=== PATIENT | male | born 1940 | race African-American/Black ===

== ENCOUNTER 2023-06-24 19:45 | Inpatient (IN) | payer MEDICARE, OTHER ==
[~2023-06-24] VITALS: Ht 172.7 cm; Wt 72.6 kg
[2023-06-24 21:47] LABS: BASOPHILS % (AUTO) 0.9 % (0.0-2.0); EOSINOPHILS # (AUTO) 0.1 K/uL (0.0-0.7); EOSINOPHILS % (AUTO) 2.3 % (0.0-6.0); HEMATOCRIT 40 % (39-51); HEMOGLOBIN 13.1 g/dL (13.5-17.5); LYMPHOCYTES % (AUTO) 42.5 % (20.0-44.0); MEAN CORPUSCULAR HEMOGLOBIN 30 PG (26.0-33.0); MEAN CORPUSCULAR HGB CONC 33 g/dl (31.0-36.0); MEAN CORPUSCULAR VOLUME 90 fL (80-96); MONOCYTES # (AUTO) 0.5 K/uL (0.1-1.30); MONOCYTES % (AUTO) 10.3 % (2.0-12.0); NEUTROPHILS # (AUTO) 2.1 K/uL (1.8-8.9); PLATELET COUNT (AUTO) 108 K/uL (150-450); RED CELL DISTRIBUTION WIDTH 15.8 % (11.5-15.0); WHITE BLOOD COUNT (AUTO) 4.8 K/uL (4.3-11.0)
[2023-06-24 22:00] LABS: CALCIUM, SERUM 9.2 mg/dL (8.5-10.1); CARBON DIOXIDE 22 mmol/L (21-32); CHLORIDE 104 mmol/L (98-107); CREATININE 1.4 mg/dL (0.6-1.3); GLUCOSE 101 mg/dL (74-106); POTASSIUM 3.6 mmol/L (3.5-5.1); SODIUM SERUM 138 mmol/L (136-145); UREA NITROGEN, BLOOD 20 mg/dL (7-18)
[2023-06-24 22:07] LABS: ALANINE AMINOTRANSFERASE 26 U/L (12-78); ALBUMIN 3.5 g/dL (3.4-5.0); ALCOHOL, BLOOD < 3 mg/dL (0-10); ALKALINE PHOSPHATASE 99 U/L (46-116); ASPARTATE AMINOTRANSFERASE 28 U/L (15-37); BILIRUBIN,DIRECT 0.3 mg/dL (0.0-0.2); BILIRUBIN,TOTAL 0.7 mg/dL (0.2-1.0); TOTAL PROTEIN, SERUM 7.8 g/dL (6.4-8.2)
[2023-06-24 22:12] LABS: SALICYLATE < 2.3 mg/dL (2.8-20.0)
[2023-06-24 22:14] LABS: ACETAMINOPHEN <10 ug/ml (10-30)
[2023-06-24] MEDS ORDERED: LORAZEPAM INJ 2 MG/ML VIAL ONE (22:59)
[2023-06-24] MEDS ORDERED: LORAZEPAM INJ 2 MG/ML VIAL IM ONE (23:00)
[2023-06-25] MEDS ORDERED: INSU100I26 SQ (04:22)
[2023-06-25] MEDS ORDERED: ASPI-1169 PO (04:22)
[2023-06-25] MEDS ORDERED: TAFA61CA PO (04:22)
[2023-06-25] MEDS ORDERED: MELA3TAB41 PO (04:22)
[2023-06-25] MEDS ORDERED: ATOR20TA PO (04:22)
[2023-06-25] MEDS ORDERED: ESCI5TAB PO (04:22)
[2023-06-25] MEDS ORDERED: FURO-144 PO (04:22)
[2023-06-25] MEDS ORDERED: CARV12.52 PO (04:22)
[2023-06-25] MEDS ORDERED: DONE10TA11 PO (04:22)
[2023-06-25] MEDS ORDERED: TRAZ-182 PO (04:22)
[2023-06-25 05:00] VITALS: BP 138/96; TEMP 98; O2SAT 99
[2023-06-25] MEDS ORDERED: LORAZEPAM 0.5 MG TABLET PO PRN (05:00)
[2023-06-25 08:00] VITALS: BP 117/76; TEMP 97.6; O2SAT 96
[2023-06-25] MEDS ORDERED: DEXTROSE 50%-WATER 50 ML DISP.SYRIN IV PRN (10:30)
[2023-06-25] MEDS: BLOOD SUGAR DIAGNOSTIC 1 EACH STRIP VI SCH ×3 (11:44→22:01)
[2023-06-25] MEDS: DIVALPROEX SODIUM 125 MG CAP.SPRINK PO SCH ×2 (13:58→17:00)
[2023-06-25 16:00] VITALS: BP 135/78; TEMP 97.7; O2SAT 97
[2023-06-25] MEDS ORDERED: TAFAMIDIS PO SCH (17:00)
[2023-06-25] MEDS: CARVEDILOL 12.5 MG TABLET PO SCH (17:00)
[2023-06-25] MEDS: ASPIRIN 81 MG TAB.CHEW PO SCH (17:00)
[2023-06-25] MEDS: FUROSEMIDE 40 MG TABLET PO SCH (17:00)
[2023-06-25] MEDS ORDERED: Medication Not On Formulary EA (Melatonin 1 TAB) PO SCH (18:00)
[2023-06-25 20:00] VITALS: BP 121/71; TEMP 98.4; O2SAT 97
[2023-06-25] MEDS: ATORVASTATIN 10 MG TABLET PO SCH (21:52)
[2023-06-25] MEDS: INSULIN GLARGINE, 100 UNIT/ML CARTRIDGE SQ SCH (21:54)
[2023-06-26] MEDS: BLOOD SUGAR DIAGNOSTIC 1 EACH STRIP VI SCH ×4 (07:45→21:51)
[2023-06-26 08:00] VITALS: BP 118/66; TEMP 97.6; O2SAT 98
[2023-06-26] MEDS: ASPIRIN 81 MG TAB.CHEW PO SCH (08:19)
[2023-06-26] MEDS: DIVALPROEX SODIUM 125 MG CAP.SPRINK PO SCH ×2 (08:19→16:28)
[2023-06-26] MEDS: CARVEDILOL 12.5 MG TABLET PO SCH ×2 (08:20→16:28)
[2023-06-26] MEDS: FUROSEMIDE 40 MG TABLET PO SCH ×2 (08:20→16:27)
[2023-06-26 16:00] VITALS: BP 109/67; TEMP 97.8; O2SAT 100
[2023-06-26 20:00] VITALS: BP 128/71; TEMP 98.1; O2SAT 98
[2023-06-26] MEDS: MEMANTINE HCL 5 MG TABLET PO SCH ×2 (21:19→22:13)
[2023-06-26] MEDS: ATORVASTATIN 10 MG TABLET PO SCH (21:20)
[2023-06-26] MEDS: INSULIN GLARGINE, 100 UNIT/ML CARTRIDGE SQ SCH (21:53)
[2023-06-27] MEDS: BLOOD SUGAR DIAGNOSTIC 1 EACH STRIP VI SCH ×4 (07:39→21:24)
[2023-06-27 08:00] VITALS: BP 98/58; TEMP 97.8; O2SAT 100
[2023-06-27] MEDS: ASPIRIN 81 MG TAB.CHEW PO SCH (08:10)
[2023-06-27] MEDS: DIVALPROEX SODIUM 125 MG CAP.SPRINK PO SCH ×2 (08:10→16:28)
[2023-06-27] MEDS: CARVEDILOL 12.5 MG TABLET PO SCH ×2 (08:10→16:28)
[2023-06-27] MEDS: FUROSEMIDE 40 MG TABLET PO SCH ×2 (08:10→16:28)
[2023-06-27] MEDS ORDERED: ACET-868 PO (12:38)
[2023-06-27] MEDS ORDERED: MEMA10TA PO (12:38)
[2023-06-27] MEDS ORDERED: BISA10SU11 RC (12:38)
[2023-06-27] MEDS ORDERED: BLOO-1280 IN (12:38)
[2023-06-27] MEDS ORDERED: NA P133E RC (12:38)
[2023-06-27 16:00] VITALS: BP 103/65; TEMP 97.8; O2SAT 97
[2023-06-27] MEDS: ATORVASTATIN 10 MG TABLET PO SCH (21:23)
[2023-06-27] MEDS: MEMANTINE HCL 5 MG TABLET PO SCH (21:23)
[2023-06-27] MEDS: INSULIN GLARGINE, 100 UNIT/ML CARTRIDGE SQ SCH (21:26)
[2023-06-27 21:27] VITALS: BP 112/70; TEMP 97.9; O2SAT 100
[2023-06-28 08:00] VITALS: BP 98/56; TEMP 97.8; O2SAT 100
[2023-06-28] MEDS: BLOOD SUGAR DIAGNOSTIC 1 EACH STRIP VI SCH ×4 (08:00→22:02)
[2023-06-28] MEDS: FUROSEMIDE 40 MG TABLET PO SCH (08:01)
[2023-06-28] MEDS: CARVEDILOL 12.5 MG TABLET PO SCH ×2 (08:01→17:09)
[2023-06-28] MEDS: ASPIRIN 81 MG TAB.CHEW PO SCH (08:02)
[2023-06-28] MEDS: DIVALPROEX SODIUM 125 MG CAP.SPRINK PO SCH ×2 (08:03→17:08)
[2023-06-28 16:00] VITALS: BP 116/62; TEMP 97.8; O2SAT 100
[2023-06-28 20:17] VITALS: BP 104/60; TEMP 98.6; O2SAT 96
[2023-06-28] MEDS: MEMANTINE HCL 5 MG TABLET PO SCH (21:48)
[2023-06-28] MEDS: ATORVASTATIN 10 MG TABLET PO SCH (21:48)
[2023-06-28] MEDS: *INSULIN REGULAR(HUMULIN R)HUM 100 UNIT/ML VIAL SQ PRN (21:59)
[2023-06-28] MEDS: INSULIN GLARGINE, 100 UNIT/ML CARTRIDGE SQ SCH (22:01)
[2023-06-29] MEDS: BLOOD SUGAR DIAGNOSTIC 1 EACH STRIP VI SCH ×4 (07:38→21:28)
[2023-06-29 08:00] VITALS: BP 117/74; TEMP 97.8; O2SAT 97
[2023-06-29] MEDS: ASPIRIN 81 MG TAB.CHEW PO SCH (08:07)
[2023-06-29] MEDS: DIVALPROEX SODIUM 125 MG CAP.SPRINK PO SCH ×2 (08:08→17:36)
[2023-06-29] MEDS: CARVEDILOL 12.5 MG TABLET PO SCH ×2 (08:08→17:37)
[2023-06-29 16:00] VITALS: BP 106/69; TEMP 98.2; O2SAT 99
[2023-06-29 20:26] VITALS: BP 125/78; TEMP 98.2; O2SAT 99
[2023-06-29] MEDS: ATORVASTATIN 10 MG TABLET PO SCH (21:25)
[2023-06-29] MEDS: MEMANTINE HCL 5 MG TABLET PO SCH (21:25)
[2023-06-29] MEDS: TEMAZEPAM 7.5 MG CAPSULE PO PRN (21:33)
[2023-06-29] MEDS: INSULIN GLARGINE, 100 UNIT/ML CARTRIDGE SQ SCH (21:41)
[2023-06-29] MEDS: *INSULIN REGULAR(HUMULIN R)HUM 100 UNIT/ML VIAL SQ PRN (21:44)
[2023-06-30] MEDS: BLOOD SUGAR DIAGNOSTIC 1 EACH STRIP VI SCH ×4 (07:47→21:35)
[2023-06-30 08:00] VITALS: BP 114/65; TEMP 98.1; O2SAT 95
[2023-06-30] MEDS: ASPIRIN 81 MG TAB.CHEW PO SCH (08:07)
[2023-06-30] MEDS: DIVALPROEX SODIUM 125 MG CAP.SPRINK PO SCH ×2 (08:07→16:23)
[2023-06-30] MEDS: CARVEDILOL 12.5 MG TABLET PO SCH ×2 (08:08→16:23)
[2023-06-30] MEDS ORDERED: ACETAMINOPHEN 325 MG TABLET PO PRN (08:30)
[2023-06-30] MEDS: INSULIN REGULAR, HUMAN 100 UNIT/ML 3 ML VIAL SQ PRN (12:27)
[2023-06-30 16:00] VITALS: BP 122/74; TEMP 98.1; O2SAT 98
[2023-06-30 20:00] VITALS: BP 107/69; TEMP 98.8; O2SAT 100
[2023-06-30] MEDS: TEMAZEPAM 7.5 MG CAPSULE PO PRN (21:04)
[2023-06-30] MEDS: ATORVASTATIN 10 MG TABLET PO SCH (21:04)
[2023-06-30] MEDS: MEMANTINE HCL 5 MG TABLET PO SCH (21:04)
[2023-06-30] MEDS: *INSULIN REGULAR(HUMULIN R)HUM 100 UNIT/ML VIAL SQ PRN (21:09)
[2023-06-30] MEDS: INSULIN GLARGINE, 100 UNIT/ML CARTRIDGE SQ SCH (21:10)
[2023-07-01] MEDS: BLOOD SUGAR DIAGNOSTIC 1 EACH STRIP VI SCH ×4 (07:24→22:03)
[2023-07-01 08:00] VITALS: BP 107/72; TEMP 97.9; O2SAT 100
[2023-07-01] MEDS: ASPIRIN 81 MG TAB.CHEW PO SCH (08:43)
[2023-07-01] MEDS: CARVEDILOL 12.5 MG TABLET PO SCH ×2 (08:43→16:56)
[2023-07-01] MEDS: DIVALPROEX SODIUM 125 MG CAP.SPRINK PO SCH ×3 (08:44→16:55)
[2023-07-01 16:00] VITALS: BP 106/65; TEMP 97.9; O2SAT 99
[2023-07-01 20:49] VITALS: BP 121/69; TEMP 97.9; O2SAT 99
[2023-07-01] MEDS: ATORVASTATIN 10 MG TABLET PO SCH (21:52)
[2023-07-01] MEDS: MEMANTINE HCL 5 MG TABLET PO SCH (21:53)
[2023-07-01] MEDS: INSULIN GLARGINE, 100 UNIT/ML CARTRIDGE SQ SCH (22:07)
[2023-07-01] MEDS: *INSULIN REGULAR(HUMULIN R)HUM 100 UNIT/ML VIAL SQ PRN (22:08)
[2023-07-02] MEDS: BLOOD SUGAR DIAGNOSTIC 1 EACH STRIP VI SCH ×4 (07:46→21:27)
[2023-07-02 08:00] VITALS: BP 111/75; TEMP 97.6; O2SAT 100
[2023-07-02] MEDS: DIVALPROEX SODIUM 125 MG CAP.SPRINK PO SCH ×3 (08:22→16:58)
[2023-07-02] MEDS: CARVEDILOL 12.5 MG TABLET PO SCH ×2 (08:22→16:59)
[2023-07-02] MEDS: ASPIRIN 81 MG TAB.CHEW PO SCH (08:22)
[2023-07-02 16:00] VITALS: BP 120/68; TEMP 97.7; O2SAT 97
[2023-07-02 20:00] VITALS: BP 102/67; TEMP 98.1; O2SAT 99
[2023-07-02] MEDS: ATORVASTATIN 10 MG TABLET PO SCH (21:26)
[2023-07-02] MEDS: MEMANTINE HCL 5 MG TABLET PO SCH (21:26)
[2023-07-02] MEDS: INSULIN GLARGINE, 100 UNIT/ML CARTRIDGE SQ SCH (22:00)
[2023-07-03 07:13] LABS: BASOPHILS % (AUTO) 0.8 % (0.0-2.0); EOSINOPHILS # (AUTO) 0.1 K/uL (0.0-0.7); EOSINOPHILS % (AUTO) 2.8 % (0.0-6.0); HEMATOCRIT 36 % (39-51); HEMOGLOBIN 11.9 g/dL (13.5-17.5); LYMPHOCYTES # (AUTO) 1.8 K/uL (0.8-4.8); LYMPHOCYTES % (AUTO) 46.3 % (20.0-44.0); MEAN CORPUSCULAR HEMOGLOBIN 30 PG (26.0-33.0); MEAN CORPUSCULAR HGB CONC 33 g/dl (31.0-36.0); MEAN CORPUSCULAR VOLUME 91 fL (80-96); MONOCYTES # (AUTO) 0.3 K/uL (0.1-1.30); MONOCYTES % (AUTO) 8.7 % (2.0-12.0); NEUTROPHILS # (AUTO) 1.6 K/uL (1.8-8.9); NEUTROPHILS % (AUTO) 41.4 % (43.0-81.0); PLATELET COUNT (AUTO) 105 K/uL (150-450); RED BLOOD CELL COUNT(AUTO) 3.95 MIL/uL (4.5-6.0); RED CELL DISTRIBUTION WIDTH 15.7 % (11.5-15.0); WHITE BLOOD COUNT (AUTO) 3.9 K/uL (4.3-11.0)
[2023-07-03 08:00] VITALS: BP 97/67; TEMP 98.6; O2SAT 99
[2023-07-03] MEDS: BLOOD SUGAR DIAGNOSTIC 1 EACH STRIP VI SCH ×4 (08:00→22:24)
[2023-07-03 08:19] LABS: ALBUMIN 2.8 g/dL (3.4-5.0); BILIRUBIN,TOTAL 0.7 mg/dL (0.2-1.0); CALCIUM, SERUM 8.8 mg/dL (8.5-10.1); CREATININE 1.3 mg/dL (0.6-1.3); POTASSIUM 4.1 mmol/L (3.5-5.1); TOTAL PROTEIN, SERUM 6.5 g/dL (6.4-8.2)
[2023-07-03] MEDS: ASPIRIN 81 MG TAB.CHEW PO SCH (08:50)
[2023-07-03] MEDS: DIVALPROEX SODIUM 125 MG CAP.SPRINK PO SCH ×3 (08:50→17:27)
[2023-07-03] MEDS: CARVEDILOL 12.5 MG TABLET PO SCH ×2 (08:51→17:00)
[2023-07-03 15:43] VITALS: BP 116/69; TEMP 97.4; O2SAT 99
[2023-07-03 16:00] VITALS: BP 116/69; TEMP 97.4; O2SAT 100
[2023-07-03] MEDS: INSULIN REGULAR, HUMAN 100 UNIT/ML 3 ML VIAL SQ PRN (17:33)
[2023-07-03 20:00] VITALS: BP 135/67; TEMP 98.4; O2SAT 99
[2023-07-03] MEDS: MEMANTINE HCL 5 MG TABLET PO SCH (21:21)
[2023-07-03] MEDS: ATORVASTATIN 10 MG TABLET PO SCH (21:21)
[2023-07-03] MEDS: INSULIN GLARGINE, 100 UNIT/ML CARTRIDGE SQ SCH (22:00)
[2023-07-04 08:00] VITALS: BP 121/84; TEMP 98.1; O2SAT 94
[2023-07-04] MEDS: BLOOD SUGAR DIAGNOSTIC 1 EACH STRIP VI SCH ×2 (08:42→11:56)
[2023-07-04] MEDS: DIVALPROEX SODIUM 125 MG CAP.SPRINK PO SCH ×2 (08:43→16:44)
[2023-07-04] MEDS: CARVEDILOL 12.5 MG TABLET PO SCH ×2 (08:43→16:45)
[2023-07-04] MEDS: ASPIRIN 81 MG TAB.CHEW PO SCH (08:43)
[2023-07-04 16:00] VITALS: BP 119/72; TEMP 98; O2SAT 99
[2023-07-04 20:00] VITALS: BP 109/69; TEMP 98.5; O2SAT 98
[2023-07-04] MEDS: MEMANTINE HCL 5 MG TABLET PO SCH (21:21)
[2023-07-04] MEDS: ATORVASTATIN 10 MG TABLET PO SCH (21:21)
[2023-07-04] MEDS: INSULIN GLARGINE, 100 UNIT/ML CARTRIDGE SQ SCH (21:27)
[2023-07-05 08:00] VITALS: BP 118/70; TEMP 97.7; O2SAT 100
[2023-07-05] MEDS: ASPIRIN 81 MG TAB.CHEW PO SCH (09:01)
[2023-07-05] MEDS: DIVALPROEX SODIUM 125 MG CAP.SPRINK PO SCH ×2 (09:01→16:36)
[2023-07-05] MEDS: CARVEDILOL 12.5 MG TABLET PO SCH ×2 (09:02→16:37)
[2023-07-05 16:00] VITALS: BP 101/63; TEMP 97.9; O2SAT 98
[2023-07-05 20:00] VITALS: BP_SYST 111; BP_SYST 138; BP_DIAS 74; TEMP 97.3; TEMP 98.2; O2SAT 97; O2SAT 98
[2023-07-05] MEDS: ATORVASTATIN 10 MG TABLET PO SCH (21:43)
[2023-07-05] MEDS: MEMANTINE HCL 5 MG TABLET PO SCH (21:43)
[2023-07-05] MEDS: INSULIN GLARGINE, 100 UNIT/ML CARTRIDGE SQ SCH (21:50)
[2023-07-06 08:00] VITALS: BP 100/71; TEMP 97.9; O2SAT 98
[2023-07-06] MEDS: DIVALPROEX SODIUM 125 MG CAP.SPRINK PO SCH ×2 (08:58→16:32)
[2023-07-06] MEDS: ASPIRIN 81 MG TAB.CHEW PO SCH (08:58)
[2023-07-06] MEDS: CARVEDILOL 12.5 MG TABLET PO SCH ×2 (08:58→16:33)
[2023-07-06 16:00] VITALS: BP 94/63; TEMP 97.7; O2SAT 99
[2023-07-06 20:30] VITALS: BP 94/57; TEMP 98.2; O2SAT 100
[2023-07-06 21:00] VITALS: BP 105/73; TEMP 98; O2SAT 96
[2023-07-06] MEDS: INSULIN GLARGINE, 100 UNIT/ML CARTRIDGE SQ SCH (21:58)
[2023-07-06] MEDS: MEMANTINE HCL 5 MG TABLET PO SCH (21:58)
[2023-07-06] MEDS: ATORVASTATIN 10 MG TABLET PO SCH (21:58)
[2023-07-07 08:00] VITALS: BP 132/82; TEMP 98.1; O2SAT 100
[2023-07-07] MEDS: ASPIRIN 81 MG TAB.CHEW PO SCH (08:17)
[2023-07-07] MEDS: CARVEDILOL 12.5 MG TABLET PO SCH ×2 (08:18→16:50)
[2023-07-07] MEDS: DIVALPROEX SODIUM 125 MG CAP.SPRINK PO SCH ×2 (08:18→16:50)
[2023-07-07 16:00] VITALS: BP 106/62; TEMP 97.8; O2SAT 100
[2023-07-07 20:56] VITALS: BP 106/68; TEMP 98.2; O2SAT 98
[2023-07-07] MEDS: ATORVASTATIN 10 MG TABLET PO SCH (21:08)
[2023-07-07] MEDS: MEMANTINE HCL 5 MG TABLET PO SCH (21:08)
[2023-07-07] MEDS: INSULIN GLARGINE, 100 UNIT/ML CARTRIDGE SQ SCH (21:24)
[2023-07-08] MEDS: TEMAZEPAM 7.5 MG CAPSULE PO PRN (01:28)
[2023-07-08 08:00] VITALS: BP 112/72; TEMP 98; O2SAT 100
[2023-07-08] MEDS: ASPIRIN 81 MG TAB.CHEW PO SCH (09:03)
[2023-07-08] MEDS: DIVALPROEX SODIUM 125 MG CAP.SPRINK PO SCH (09:03)
[2023-07-08 09:04] VITALS: BP 112/72
[2023-07-08] MEDS: CARVEDILOL 12.5 MG TABLET PO SCH (09:04)
== END 2023-07-08 13:05 | DRG 885 ==
LOC: ER 19:51 → GPS 06-25 01:06
PROVIDERS: ADMIT Psychiatry & Neurology Psychosomatic Medicine; ATTEND Internal Medicine
DX: F31.9 Bipolar disorder, unspecified (principal); N18.9 Chronic kidney disease, unspecified; F02.818 Dementia in other diseases classified elsewhere, unspecified severity, with other behavioral disturbance; F02.82 Dementia in other diseases classified elsewhere, unspecified severity, with psychotic disturbance; I50.32 Chronic diastolic (congestive) heart failure; I13.0 Hypertensive heart and chronic kidney disease with heart failure and stage 1 through stage 4 chronic kidney disease, or unspecified chronic kidney disease; F29 Unspecified psychosis not due to a substance or known physiological condition; E11.22 Type 2 diabetes mellitus with diabetic chronic kidney disease; G30.9 Alzheimer's disease, unspecified; N18.30 Chronic kidney disease, stage 3 unspecified; Z79.82 Long term (current) use of aspirin; Z95.0 Presence of cardiac pacemaker; D63.1 Anemia in chronic kidney disease; N40.0 Benign prostatic hyperplasia without lower urinary tract symptoms; Z91.199 Patient's noncompliance with other medical treatment and regimen due to unspecified reason; Z79.4 Long term (current) use of insulin; Z79.899 Other long term (current) drug therapy
CPT/HCPCS: 36415; 80048-TC; 80053-TC; 80076-TC; 80164-TC; 82962-TC; 85025-TC; G0480; J1815; J2060